=== PATIENT | female | born 1995 | race Caucasian/White ===

== ENCOUNTER 2016-11-28 14:45 | Emergency (ER) | payer OTHER ==
[2016-11-28 14:55] VITALS: BP 137/81
[2016-11-28] MEDS ORDERED: ACETAMINOPHEN 325 MG TABLET PO ONE (15:20)
--- NOTE | 2016-11-28 15:23 | ERNOTE ---
ER Female HPI Stated Complaint: ORANGE URINE, SIDE PAIN Presenting Symptoms: dysuria Time Seen by Provider: 11/28/16 15:13 Source: patient Exam Limitations: no limitations Immunizations: IMMUNIZATION HX Immunizations Up to Date Yes History of Influenza Vaccine No Hx Pneumococcal Vaccination No Allergies/Adverse Reactions: Allergies No Known Allergies Allergy (Verified 11/28/16 14:55) Home Medications: HOME MEDICATIONS Ciprofloxacin HCl [Cipro] 500 mg PO BID #20 tab 11/28/16 [Last Taken Unknown] - History of Present Illness Narrative: Patient has had dysuria and hesitancy for 3-4 days.She is not aware of any fever , vomited yesterday after drinking a lot of water but is keeping fluids down today. She also started to have right flank pain. Her periods are irregular, her fiance had a vasectomy, denies any vaginal discharge Review of Systems - Review of Systems Constitutional: Absent: recent illness, fever, chills ENT: Absent: nose congestion, sore throat Respiratory: Absent: shortness of breath Cardiology: Absent: chest pain Gastrointestinal/Abdominal: Present: See HPI, nausea, vomiting. Absent: abdominal pain Genitourinary: Present: no symptoms reported, See HPI, frequency Musculoskeletal: Present: See HPI, back pain Neurological: Absent: headache - Patient's Past Medical History Patient History - Medical: ADHD, Anxiety, Rheumatoid Arthritis, Other Patient History - Cardiac/Respiratory: No pertinent hx Patient History - Cancer: No Hx of Cancer Patient History - Surgical Procedures: No surgical history Patient History - Other: None LMP (females 10-50): 1 month - Social History Living Situations: home Psych History: No pertinent hx Smoking Status: Current every day smoker Alcohol Use: occasionally Drug Use: none - Immunizations Immunizations Up to Date: Yes Hx Pneumococcal Vaccination: No History of Influenza Vaccine: No Physical Exam - Physical Exam General Appearance: Present: wd/wn, alert, no apparent distress Respiratory: Present: no respiratory distress, normal breath sounds, no accessory muscle use, lungs clear Cardiovascular/Chest: Present: regular rate, rhythm, no murmur Gastrointestinal/Abdominal: Present: normal bowel sounds, nontender, nondistended, soft Back Exam: Present: CVA tenderness (R). Absent: CVA tenderness (L) Neurological Exam: Present: alert, oriented, normal mood/affect Skin Exam: Present: normal color, warm/dry ED Progress - Results and Orders Patient's Lab Results:: I have reviewed the patient's lab results. - Vital Signs Patient's Vital Signs:: I have reviewed the patient's vital signs. Vital Signs: Vital Signs 11/28/16 14:50 Temperature 38.2 C H Pulse Rate 114 H Respiratory 17 Rate Blood Pressure 137/81 O2 Sat by Pulse 100 Oximetry - Progress/Reassessment Chief Complaint: Urinary Tract Problems Progress Note-Subjective: 11/28/16 16:06 discussed results and diagnosis Departure Clinical Impression: Pyelonephritis - Departure Disposition: Home self-care Condition: Good Instructions: Pyelonephritis, Adult, [id number] Additional Instructions: drink plenty of fluids, if you can't keep the medications down return to the ER Referrals: Pierre Silva MD [Staff Physician] - Prescriptions: Ciprofloxacin HCl [Cipro] 500 mg PO BID #20 tab
[2016-11-28 15:31] LABS: Hematocrit 37.3 % (37.0-47.0); Hemoglobin 12.5 gm/dL (12.5-16.0); Mean Corpuscular Hemoglobin 30.5 pg (27-31); Mean Corpuscular Hgb Conc 33.5 g/dl (32-36); Mean Platelet Volume 9.6 fl (6.0-9.5); Neutrophil # 9.5 K/mm3 (1.3-6.0); Neutrophil % 80.5 % (42-75.0); Platelet Count 163 K/mm3 (150-450); Red Cell Distribution Width 11.9 % (11.5-14.0); White Blood Count 11.8 K/mm3 (4.0-10.5)
[2016-11-28] MEDS ORDERED: ACETAMINOPHEN 325 MG TABLET ONE (15:35)
--- OUTSIDE RECORDS SUMMARY | 2016-11-28 15:38 | XMS REPORT | Continuity of Care Document ---
:1995 Author Organization [facility] Address [place] [address] Care Team Providers Name Role Phone Provider, None Per Patient Primary Care Provider Unavailable Source Comments This disclosure is being made pursuant to the [employer] program and maynot contain all information available regarding this patient.[facility] Active Allergies and Adverse Reactions No Known Allergies Current Medications Be aware that medications may not be up to date as of this document. Alwaysverify current medications with the patient. Prescription Sig. Disp. Refills Start Date End Date Status AMOXICILLIN PO Take by mouth. Active HYDROcodone-acetaminoph Take 1 tablet by 15 tablet 0 09/16/2015 Active en (NORCO) 5-325 MG per mouth every 6 tablet (six) hours as needed for Pain. Active Problems No known active problems Social History Tobacco Use Types Packs/Day Years Used Date Current Every Day Smoker Cigarettes 1 Tobacco Cessation:Ready to Quit: No Comments: Alcohol Use Drinks/Week oz/Week Comments No Last Filed Vital Signs Vital Sign Reading Time Taken Blood Pressure 131/84 09/16/2015 10:21 PM CDT Pulse 105 09/16/2015 10:21 PM CDT Temperature 36.7 C (98.1 F) 09/16/2015 10:21 PM CDT Respiratory Rate 16 09/16/2015 10:21 PM CDT Height 1.702 m (5' 7") 09/16/2015 10:21 PM CDT Weight 62.9 kg (138 lb 10.7 oz) 09/16/2015 10:21 PM CDT Body Mass Index 21.71 09/16/2015 10:21 PM CDT Oxygen Saturation 98% 09/16/2015 10:21 PM CDT Plan of Care Health Maintenance Due Date Last Done Comments HPV Vaccine ([id number],M: 9-22) (1 of 3 - Female 3 Dose 2005 Series) Chlamydia Screening 2010 Tetanus/Pertussis (1 - Tdap) 2013 Pap Smear 2015 Influenza Immunization (#1) 2016 Results from Last 3 Months Not on file Insurance Payer Benefit Plan / Group Subscriber ID Type Phone Address [facility] [id number] SOREN JENNINGS Personal/Family Self 1995 Home: [address] [phone] [place] [address]
[2016-11-28 15:45] LABS: Albumin * 3.6 gm/dl (3.4-5.0); Anion Gap 12.2 mmol/L (6.8-13.8); BUN/Creatinine Ratio 12.3 (9.0-21.6); Bilirubin, Total 0.7 mg/dL (0.0-1.1); Ca. Corrected For Albumin 8.6 mg/dL (8.4-10.2); Calcium * 8.6 mg/dL (7.9-10.9); Carbon Dioxide 27.6 mmol/L (24-32.6); Potassium 3.8 mmol/L (3.4-4.6); Total Protein 7.4 gm/dL (6.2-8.2)
[2016-11-28 15:47] LABS: Urine Appearance Cloudy
[2016-11-28 15:49] LABS: Urine Blood 250 /ul (NEGATIVE)
[2016-11-28 15:50] LABS: Urine Protein >100 mg/dL (NEGATIVE)
[2016-11-28 15:52] LABS: Urine RBC >50 /hpf (0-5); Urine WBC >50 /hpf (0-5)
[2016-11-28 15:53] LABS: Urine Bacteria 3+
[2016-11-28 15:55] LABS: Urine Color Orange
[2016-11-28] MEDS ORDERED: CIPROFLOXACIN HCL 250 MG TABLET PO ONE (16:06)
[2016-11-28] MEDS ORDERED: CIPROFLOXACIN HCL 250 MG TABLET ONE (16:09)
== END 2016-11-28 16:12 | disposition home or self-care (01) ==
LOC: ER 14:45
DX: N12 Tubulo-interstitial nephritis, not specified as acute or chronic (principal); Z72.0 Tobacco use